=== PATIENT | male | born 1955 | race Caucasian/White ===

== ENCOUNTER 2016-08-08 20:55 | Emergency (ER) | payer OTHER ==
[2016-08-08 22:00] VITALS: BP 143/90; PULSE 71; TEMP 98.5; BMI 24.2
[2016-08-09] MEDS ORDERED: NAPROXEN 500 MG TABLET (FP) PO ONE (00:19)
--- NOTE | 2016-08-09 00:27 | PDOC ---
History of Present Illness - General History Source: Patient Exam Limitations: No Limitations <Edu Sanchez - Last Filed: 08/09/16 00:27> - General History Source: Patient Exam Limitations: No Limitations - History of Present Illness Initial Comments: 08/09/16 00:40 The patient is a 60 year old male presenting with his daughter, with a significant past medical history of right knee arthritis s/p surgery, who presents to the emergency department with left knee pain after hitting it against a door that was adjacently opened 2 hours prior to presentation. He notes that the door is wooden. He reports that his pain ranges from mild to moderate, without radiation. He states that walking mildly exacerbates his pain. The patient denies any other kinds of pains or injuries. Allergies: None Past surgical history: Right knee surgery Social history: No alcohol, tobacco or drug use reported <Romero Escoto - Last Filed: 08/09/16 00:41> - General Chief Complaint: Injury Stated Complaint: INJURY Time Seen by Provider: 08/09/16 00:03 Past History - Past Medical History Other medical history: eczema - Immunization History Td Vaccination: Yes Immunization Up to Date: Yes - Psycho/Social/Smoking Cessation Hx Anxiety: No Suicidal Ideation: No Smoking Status: No Smoking History: Never smoked Have you smoked in the past 12 months: No Number of Cigarettes Smoked Daily: 0 Information on smoking cessation initiated: No Hx Alcohol Use: No Drug/Substance Use Hx: No Substance Use Type: None <Edu Sanchez - Last Filed: 08/09/16 00:27> <Romero Escoto - Last Filed: 08/09/16 00:41> - Past Medical History Allergies/Adverse Reactions: Allergies Allergy/AdvReac Type Severity Reaction Status Date / Time No Known Allergies Allergy Verified 08/08/16 21:20 Home Medications: Ambulatory Orders NK [No Known Home Medication] 03/03/14 Review of Systems - Review of Systems Able to Perform ROS?: Yes Comments:: 08/09/16 00:40 GENERAL/CONSTITUTIONAL: No fever or chills. No weakness. HEAD, EYES, EARS, NOSE AND THROAT: No change in vision. No ear pain or discharge. No sore throat. CARDIOVASCULAR: No chest pain or shortness of breath RESPIRATORY: No cough, wheezing, or hemoptysis. GASTROINTESTINAL: No nausea, vomiting, diarrhea or constipation. GENITOURINARY: No dysuria, frequency, or change in urination. MUSCULOSKELETAL: No joint or muscle swelling or pain. No neck or back pain. EXTREMITIES: +Left knee pain. SKIN: No rash NEUROLOGIC: No headache, vertigo, loss of consciousness, or change in strength/ sensation. ENDOCRINE: No increased thirst. No abnormal weight change HEMATOLOGIC/LYMPHATIC: No anemia, easy bleeding, or history of blood clots. ALLERGIC/IMMUNOLOGIC: No hives or skin allergy. <Romero Escoto - Last Filed: 08/09/16 00:41> *Physical Exam - Vital Signs Last Vital Signs Temp Pulse Resp BP Pulse Ox 98.5 F 71 16 143/90 99 08/08/16 21:21 08/08/16 21:21 08/08/16 21:21 08/08/16 21:21 08/08/16 21:21 <Edu Sanchez - Last Filed: 08/09/16 00:27> - Vital Signs Last Vital Signs Temp Pulse Resp BP Pulse Ox 98.5 F 71 16 143/90 99 08/08/16 21:21 08/08/16 21:21 08/08/16 21:21 08/08/16 21:21 08/08/16 21:21 - Physical Exam Comments: 08/09/16 00:40 GENERAL: Awake, alert, and fully oriented, in no acute distress HEAD: No signs of trauma, normocephalic, atraumatic EYES: PERRLA, EOMI, sclera anicteric, conjunctiva clear ENT: Auricles normal inspection, hearing grossly normal, nares patent, oropharynx clear without exudates. Moist mucosa NECK: Normal ROM, supple, no lymphadenopathy, JVD, or masses LUNGS: No distress, speaks full sentences, clear to auscultation bilaterally HEART: Regular rate and rhythm, normal S1 and S2, no murmurs, rubs or gallops, peripheral pulses normal and equal bilaterally. ABDOMEN: Soft, nontender, normoactive bowel sounds. No guarding, no rebound. No masses EXTREMITIES: +Negative anterior and posterior drawer test, negative valgus and varus No pain on internal or external rotation of the knee. Mild small ecchymosis on lateral left knee No tenderness of the tibial plateau. Normal range of motion, no edema. No clubbing or cyanosis. NEUROLOGICAL: Cranial nerves II through XII grossly intact. Normal speech, normal gait, no focal sensorimotor deficits SKIN: Warm, Dry, normal turgor, no rashes or lesions noted. <Romero Escoto Ally - Last Filed: 08/09/16 00:41> ED Treatment Course - RADIOLOGY Radiology Studies Ordered: Category Date Time Status KNEE 3 POS-LEFT [RAD] Stat Radiology 08/08/16 23:02 Completed <Edu Sanchez - Last Filed: 08/09/16 00:27> - RADIOLOGY Radiograph Interpretation: 08/09/16 00:40 Left knee x-ray Reviewed by: Dr. Bella Sandoval Impression: Limited examination. Mild osteoarthritic changes. <RonlepricilaRomero - Last Filed: 08/09/16 00:41> Medical Decision Making - Medical Decision Making 08/09/16 00:28 A portion of this note was documented by scribe services under my direction. I have reviewed the details of the note, within reason, and agree with the documentation with the following case summary and management plan written by me. Patient treated in the ED. Nursing notes are reviewed and incorporated into the medical decision-making. Vital signs reviewed. Peripheral IV access obtained by the nurse, laboratory studies are drawn and sent, reviewed and interpreted by myself. Vital Signs Temp Pulse Resp BP Pulse Ox 98.5 F 71 16 143/90 99 08/08/16 21:21 08/08/16 21:21 08/08/16 21:21 08/08/16 21:21 08/08/16 21:21 60 year old male pmh arthritis p/w L knee pain. The patient had banged his left knee into a wooden door and developed a bruise. Pt able to ambulate. Had pain. However, because of the bruise, patient came into the ED. The patient is neurovascularly intact. Knee xray demonstrates arthritis but no fractures. LOUIE wrap applied. RICE therapy. Follow up with orthopedics if symptoms persist > 1 week. Pt's daughter also at bedside who agrees with plan. I discussed the physical exam findings, ancillary test results and final diagnoses with the patient. I answered all of the patient's questions. The patient was satisfied with the care received and felt comfortable with the discharge plan and treatment plan. The patient will call their primary care physician within 24 hours to arrange follow-up and will return to the Emergency Department with any new, persistant or worsening symptoms. <Edu Sanchez - Last Filed: 08/09/16 00:27> *DC/Admit/Observation/Transfer - Discharge Dispostion Admit: No <Edu Sanchez - Last Filed: 08/09/16 00:27> - Attestations Scribe Attestion: 08/09/16 00:40 Documentation prepared by Romero Escoto, acting as medical research tech for Edu Sanchez MD. <Romero Escoto - Last Filed: 08/09/16 00:41> Diagnosis at time of Disposition: Knee pain, left Qualifiers: Chronicity: acute Qualified Code(s): M25.562 - Pain in left knee - Discharge Dispostion Disposition: HOME Condition at time of disposition: Stable - Referrals Referrals: Lance Rivera MD [Primary Care Provider] - Khai Del Toro MD [Staff Physician] - - Patient Instructions Printed Discharge Instructions: DI for Knee Pain Additional Instructions: Your knee xray showed arthritis but no fracture. Weight bear as tolerated. LOUIE wrap for comfort. Ice as needed. Elevate the leg as much as you can. If your pain is persistent for over a week, follow up with an orthopedist. Take 650 mg tylenol every 4 hours and/or 600 mg ibuprofen (motrin) every 6 to 8 hours as needed for pain.
== END 2016-08-09 00:57 | disposition home or self-care (01) ==
LOC: JER 20:55 → JERFT 20:55 → JER 08-09 00:57
DX: S80.02XA Contusion of left knee, initial encounter (principal); W22.8XXA Striking against or struck by other objects, initial encounter; Y93.89 Activity, other specified; Y92.89 Other specified places as the place of occurrence of the external cause; Y99.8 Other external cause status
CPT/HCPCS: 73562-TC-LT; 99281-25

== ENCOUNTER 2017-07-14 12:18 | Emergency (ER) | payer OTHER ==
[2017-07-14 12:33] VITALS: BP 141/93; PULSE 79; TEMP 97.8; BMI 23.1
--- NOTE | 2017-07-14 13:31 | PDOC ---
History of Present Illness - General Chief Complaint: Laceration Stated Complaint: LACERATION TO MOUTH Time Seen by Provider: 07/14/17 13:20 History Source: Patient Exam Limitations: No Limitations - History of Present Illness Initial Comments: 07/14/17 13:30 61 yr male with laceration to his lip after accidentaly hit the lip on the table. no loc no dental trauma. Past History - Past Medical History Allergies/Adverse Reactions: Allergies Allergy/AdvReac Type Severity Reaction Status Date / Time No Known Allergies Allergy Verified 07/14/17 12:32 Home Medications: Ambulatory Orders NK [No Known Home Medication] 03/03/14 COPD: No Other medical history: ECZEMA - Immunization History Td Vaccination: Yes Immunization Up to Date: Yes - Suicide/Smoking/Psychosocial Hx Smoking Status: No Smoking History: Never smoked Have you smoked in the past 12 months: No Number of Cigarettes Smoked Daily: 0 Hx Alcohol Use: No Drug/Substance Use Hx: No Substance Use Type: None *Physical Exam - Vital Signs Last Vital Signs Temp Pulse Resp BP Pulse Ox 97.8 F 79 20 141/93 97 07/14/17 12:29 07/14/17 12:29 07/14/17 12:29 07/14/17 12:29 07/14/17 12:29 - Physical Exam General Appearance: Yes: Nourished HEENT: positive: EOMI, MILAGROS, Other (upper lip left side with inside superficial laceration no active bleeding , bruising noted ) Neck: positive: Supple. negative: Tender Respiratory/Chest: positive: Lungs Clear, Normal Breath Sounds Cardiovascular: positive: Regular Rhythm, Regular Rate Musculoskeletal: positive: Normal Inspection Extremity: positive: Normal Capillary Refill, Normal Inspection, Normal Range of Motion Integumentary: positive: Normal Color, Dry, Warm Neurologic: positive: Fully Oriented, Alert, Normal Mood/Affect, Normal Response , Motor Strength 5/5 Procedures - Laceration/Wound Repair Left Lip Wound Length: to 2.5 cm Wound Explored: clean Wound's Depth, Shape: superficial Progress: 07/14/17 13:39 wound cleaned with peroxide no active bleeding or drainage bacitracin placed will dc home with supportive care Medical Decision Making - Medical Decision Making 07/14/17 13:39 cc: lip laceration on a piece of metal table no dental trauma no active bleeding lac inside the lip superficial 1.0cm cleaned with peroxide bacitracin placed *DC/Admit/Observation/Transfer Diagnosis at time of Disposition: Laceration of lip Qualifiers: Encounter type: initial encounter Qualified Code(s): S01.511A - Laceration without foreign body of lip, initial encounter - Discharge Dispostion Disposition: HOME Condition at time of disposition: Good - Referrals Referrals: Lance Rivera MD [Primary Care Provider] - - Patient Instructions Additional Instructions: gargle wtih warm salt water 3-4 times a day ice every 2hrs for 15 minutes to the swelling soft foods for the next 24hrs nothing spicy or crunchy follow with your dentist for any increased pain or drainage you can also take tylenol or motrin for pain as needed - Post Discharge Activity
== END 2017-07-14 13:37 | disposition home or self-care (01) ==
LOC: JERFT 12:18
DX: S01.511A Laceration without foreign body of lip, initial encounter (principal); W22.8XXA Striking against or struck by other objects, initial encounter; Y93.89 Activity, other specified; Y92.89 Other specified places as the place of occurrence of the external cause; Y99.8 Other external cause status
CPT/HCPCS: 99281-25

== ENCOUNTER 2018-09-08 12:03 | Emergency (ER) | payer OTHER ==
[2018-09-08 12:19] VITALS: BP 146/80; PULSE 61; TEMP 98.4; BMI 21.7
--- NOTE | 2018-09-08 14:00 | PDOC ---
History of Present Illness - General Chief Complaint: Pain Stated Complaint: STUBBED TOE Time Seen by Provider: 09/08/18 13:54 History Source: Patient Exam Limitations: No Limitations - History of Present Illness Initial Comments: 09/08/18 14:33 Was walking by edge of table when accidentally kicked the side striking his fifth digit right foot. Is black and blue and painful. Occurred: reports: just prior to arrival, this morning Severity: reports: mild, moderate Pain Location: reports: lower extremity (right 3rd toe ) Method of Injury: Yes: direct blow Modifying Factors: improves with: None Associated Symptoms (Fall): denies symptoms Past History - Travel Traveled outside of the country in the last 30 days: No Close contact w/someone who was outside of country & ill: No - Past Medical History Allergies/Adverse Reactions: Allergies Allergy/AdvReac Type Severity Reaction Status Date / Time No Known Allergies Allergy Verified 09/08/18 12:29 Home Medications: Ambulatory Orders NK [No Known Home Medication] 03/03/14 COPD: No - Immunization History Td Vaccination: Yes Immunization Up to Date: Yes - Suicide/Smoking/Psychosocial Hx Smoking Status: No Smoking History: Never smoked Have you smoked in the past 12 months: No Number of Cigarettes Smoked Daily: 0 Information on smoking cessation initiated: No Hx Alcohol Use: No Drug/Substance Use Hx: No Substance Use Type: None Review of Systems - Review of Systems Able to Perform ROS?: Yes Is the patient limited [place] Islander proficient: Yes Constitutional: Yes: Symptoms Reported, See HPI, Malaise HEENTM: Yes: See HPI. No: Symptoms Reported Respiratory: No: Symptoms reported Musculoskeletal: Yes: Symptoms Reported, See HPI, Joint Pain (right 5th toe), Joint Swelling Integumentary: Yes: Symptoms Reported, See HPI, Bruising All Other Systems: Reviewed and Negative *Physical Exam - Vital Signs Last Vital Signs Temp Pulse Resp BP Pulse Ox 98.4 F 61 20 146/80 96 09/08/18 12:15 09/08/18 12:15 09/08/18 12:15 09/08/18 12:15 09/08/18 12:15 - Physical Exam General Appearance: Yes: Nourished, Appropriately Dressed, Apparent Distress, Mild Distress HEENT: positive: MILAGROS, Normal ENT Inspection, TMs Normal, Pharynx Normal Extremity: positive: Normal Capillary Refill, Tender. negative: Normal Range of Motion Integumentary: positive: Normal Color, Dry, Warm, Swelling (to all of 5th toe into MTP with tenderness. Sensation intact. ), Ecchymosis, Bruising Neurologic: positive: vehicle operator II-XII NML intact, Fully Oriented, Alert, Normal Mood/ Affect, Normal Response, Motor Strength 5/5 Moderate Sedation - Procedure Monitoring Vital Signs: Procedure Monitoring Vital Signs Temperature 98.4 F 09/08/18 12:15 Pulse Rate 61 09/08/18 12:15 Respiratory Rate 20 09/08/18 12:15 Blood Pressure 146/80 09/08/18 12:15 O2 Sat by Pulse Oximetry (%) 96 09/08/18 12:15 ED Treatment Course - RADIOLOGY Radiology Studies Ordered: Category Date Time Status TOE(S) RIGHT [RAD] Stat Radiology 09/08/18 13:54 Ordered Progress Note - Progress Note Progress Note: Nondisplaced fracture of the proximal phalanx fifth digit right foot, area body tape and cast shoe applied *DC/Admit/Observation/Transfer Diagnosis at time of Disposition: Toe fracture, right Qualifiers: Encounter type: initial encounter Toe: lesser toe Fracture type: closed Phalanx : proximal Fracture alignment: nondisplaced Qualified Code(s): S92.514A - Nondisplaced fracture of proximal phalanx of right lesser toe(s), initial encounter for closed fracture - Discharge Dispostion Disposition: HOME Condition at time of disposition: Stable Decision to Admit order: No - Referrals Referrals: Lance Rivera MD [Primary Care Provider] - - Patient Instructions Printed Discharge Instructions: DI for Toe Fracture Additional Instructions: Rest, ice to area on and off for 15 minutes 4-6 times a day Avoid heavy lifting or exercise until pain and swelling is resolved or until further directed Keep area highly elevated to reduce swelling Use kayla taping using Band-Aids as demonstrated until pain and swelling resolves, could be a couple weeks Cast shoe to prevent flexion and provide comfort and support to broken toes as needed Followup with orthopedist in one to 2 days if not improving, if significantly improved may wait one week for followup with orthopedist May use ibuprofen every 6 hours as needed for pain - Post Discharge Activity Forms/Work/School Notes: Back to Work
== END 2018-09-08 14:36 | disposition home or self-care (01) ==
LOC: JERFT 12:03
DX: S92.514A Nondisplaced fracture of proximal phalanx of right lesser toe(s), initial encounter for closed fracture (principal); W22.03XA Walked into furniture, initial encounter; Y93.01 Activity, walking, marching and hiking; Y92.038 Other place in apartment as the place of occurrence of the external cause; Y99.8 Other external cause status
CPT/HCPCS: 73660-TC-FY; 99281-25

== ENCOUNTER 2021-05-28 13:10 | Emergency (ER) | payer OTHER ==
[2021-05-28 13:42] VITALS: BP 151/90; PULSE 77; TEMP 97.8; BMI 24.9
[2021-05-28] MEDS ORDERED: ACETAMINOPHEN 500 MG TABLET (FP) PO ONE (14:05)
[2021-05-28] MEDS ORDERED: METHOCARBAMOL 500 MG TABLET PO ONE (14:05)
[2021-05-28 15:10] LABS: BASO % 0.5 % (0-2.0); EOS % 0.8 % (0-4.5); HEMATOCRIT 44.4 % (35.4-49); HEMOGLOBIN 15.2 GM/dL (11.7-16.9); LYMPH % 7.3 % (8-40); MCH 29.4 pg (25.7-33.7); MCHC 34.1 g/dl (32.0-35.9); MEAN CELL VOLUME 86.1 fl (80-96); MEAN PLT VOLUME 8.1 fl (7.5-11.1); MONO % 6.2 % (3.8-10.2); NEUT % 85.2 % (42.8-82.8); PLATELET COUNT 186 10^3/uL (134-434); RBC 5.16 M/mm3 (4.00-5.60); RDW 14.7 % (11.9-15.9); WHITE BLOOD COUNT 9.6 K/mm3 (4.0-10.0)
[2021-05-28 15:33] LABS: CHLORIDE 102 mmol/L (98-107); SODIUM 130 mmol/L (136-145)
[2021-05-28 15:35] LABS: ALBUMIN 4.1 g/dl (3.4-5.0); CALCIUM 9.4 mg/dL (8.5-10.1)
[2021-05-28 15:36] LABS: BLOOD UREA NITROGEN 17.1 mg/dL (7-18); CO2 28 mmol/L (21-32); GLUCOSE,RANDOM 87 mg/dL (74-106)
[2021-05-28 15:40] LABS: BILIRUBIN,TOTAL 2.4 mg/dL (0.2-1); TOT PROT 8.8 g/dl (6.4-8.2)
[2021-05-28 15:42] LABS: ALK PHOS 88 U/L (45-117)
[2021-05-28 15:54] LABS: ANION GAP 0 MMOL/L (8-16); SGOT/AST 116 U/L (15-37); SGPT/ALT 37 U/L (13-61)
[2021-05-28 16:13] LABS: CALCIUM 9.6 mg/dL (8.5-10.1)
[2021-05-28 16:14] LABS: BLOOD UREA NITROGEN 16.9 mg/dL (7-18)
[2021-05-28 16:17] LABS: CREATININE 0.9 mg/dL (0.55-1.3)
[2021-05-28] MEDS ORDERED: KETOROLAC TROMETHAMINE 30 MG/1 ML VIAL IVPUSH ONE (16:48)
[2021-05-28] MEDS ORDERED: METHOCARBAMOL 500 MG TABLET ONE (16:54)
[2021-05-28] MEDS ORDERED: KETOROLAC TROMETHAMINE 30 MG/1 ML VIAL ONE (16:54)
[2021-05-28] MEDS ORDERED: ACETAMINOPHEN 500 MG TABLET (FP) ONE (17:39)
== END 2021-05-28 18:40 | disposition home or self-care (01) ==
LOC: JERFT 13:10 → JER 13:10 → JERFT 18:40
DX: R07.9 Chest pain, unspecified (principal); M54.2 Cervicalgia; R10.9 Unspecified abdominal pain; V43.52XA Car driver injured in collision with other type car in traffic accident, initial encounter
CPT/HCPCS: 36415; 71046-TC-FY; 71275-TC; 74177-TC; 76604; 76705-TC; 80048; 80053; 84484; 85025; 93005; 93010; 93308; 99285-25; Q9967

== ENCOUNTER 2023-05-05 18:28 | Emergency (ER) | payer OTHER ==
[2023-05-05 18:33] VITALS: RESP 18; TEMP 98; BMI 24.9
[2023-05-05] MEDS ORDERED: FLUTICASONE PROP 0.05% 16 GM NASAL SPRAY NS ONE (22:11)
[2023-05-05] MEDS ORDERED: BENZONATATE 200 MG CAPSULE PO ONE (22:11)
[2023-05-05 22:51] LABS: BASO % 0.5 % (0-2.0); EOS % 3.3 % (0-4.5); HEMATOCRIT 43.5 % (35.4-49); HEMOGLOBIN 14.9 GM/dL (11.7-16.9); LYMPH % 24.7 % (8-40); MCH 29.4 pg (25.7-33.7); MCHC 34.2 g/dl (32.0-35.9); MEAN CELL VOLUME 85.9 fl (80-96); MEAN PLT VOLUME 7.9 fl (7.5-11.1); MONO % 8.6 % (3.8-10.2); NEUT % 62.9 % (42.8-82.8); PLATELET COUNT 244 10^3/uL (134-434); RBC 5.07 M/mm3 (4.00-5.60); RDW 14.5 % (11.9-15.9); WHITE BLOOD COUNT 6.3 K/mm3 (4.0-10.0)
[2023-05-05 23:03] LABS: URINE APPEARANCE Clear; URINE BILIRUBIN Negative (NEGATIVE); URINE COLOR Yellow; URINE GLUCOSE (UA) Negative (NEGATIVE); URINE KETONE Negative (NEGATIVE); URINE LEUK ESTERASE Negative (NEGATIVE); URINE NITRITE Negative (NEGATIVE); URINE PROTEIN Negative (NEGATIVE); URINE UROBILINOGEN 0.2 mg/dL (0.2-1.0)
[2023-05-05 23:25] VITALS: BP 165/96; PULSE 61
[2023-05-05 23:38] LABS: POTASSIUM 4.5 mmol/L (3.5-5.1)
[2023-05-05 23:40] LABS: ALBUMIN 4.3 g/dl (3.4-5.0); CALCIUM 8.8 mg/dL (8.5-10.1)
[2023-05-05 23:43] LABS: CREATININE 0.9 mg/dL (0.55-1.3)
[2023-05-05] MEDS ORDERED: DOXYCYCLINE HYCLATE 100 MG CAPSULE PO ONE ×2 (23:43→23:44)
[2023-05-05 23:45] LABS: BILIRUBIN,TOTAL 1.3 mg/dL (0.2-1); TOT PROT 7.8 g/dl (6.4-8.2)
== END 2023-05-05 23:50 | disposition home or self-care (01) ==
LOC: JERFT 18:28 → JER 18:28 → JERFT 23:50
DX: R05.9 Cough, unspecified (principal); R09.81 Nasal congestion; J02.9 Acute pharyngitis, unspecified; R51.9 Headache, unspecified; R42 Dizziness and giddiness; R09.82 Postnasal drip; J01.90 Acute sinusitis, unspecified
CPT/HCPCS: 26055; 36415; 71046-TC-FY; 80053; 81003; 85025; 87086; 99284-25